=== PATIENT | male | born 1970 | race African-American/Black ===

== ENCOUNTER 2016-09-10 13:58 | Emergency (ER) | payer OTHER ==
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
[2016-09-10 14:13] VITALS: BP 142/91; PULSE 74; RESP 20; TEMP 98.3; O2SAT 99
[2016-09-10] MEDS ORDERED: LEXA20TA PO (14:13)
[2016-09-10] MEDS ORDERED: LISI40TA PO (14:13)
[2016-09-10] MEDS ORDERED: [UNRECOGNIZED DRUG - OTHER] (14:13)
== END 2016-09-10 14:51 | disposition home or self-care (01) ==
LOC: NEPD 13:58
DX: S16.1XXA Strain of muscle, fascia and tendon at neck level, initial encounter (principal); V43.62XA Car passenger injured in collision with other type car in traffic accident, initial encounter; Y93.9 Activity, unspecified; Y92.481 Parking lot as the place of occurrence of the external cause; Y99.9 Unspecified external cause status
CPT/HCPCS: 99283